=== PATIENT | female | born 1975 | race Two or more races ===

== ENCOUNTER → 2024-08-17 | Outpatient (CLI) | payer MEDICAID, SELFPAY ==
--- NOTE | 2024-08-17 11:15 | XR_ITS ---
Examination: Screening digital mammography, bilateral Computer aided detection 3-D breast Tomosynthesis, bilateral Date and time of exam: August 17, 2024 11:05 AM Compared to mammograms dating to February 05, 2018 Indication: Screening Technique: Nonmagnified MLO, CC views of the breasts to been obtained, reconstructed from 3-D Tomosynthesis images. R2 computer aided detection program utilized for evaluation of suspicious masses and/or abnormal calcifications. 3-D Tomosynthesis images obtained. Findings: The breasts are diffusely dense, which may obscure small masses Grouped microcalcifications upper outer right breast posterior depth 12 mm round mass lobular margins upper outer right breast posterior depth 14 mm round mass lobular margins upper outer left breast Impression: BI-RADS Category 0: Incomplete: Need additional imaging evaluation Grouped microcalcifications upper outer right breast posterior depth, recommend magnification spot compression views 12 mm round mass upper outer right breast, 14 mm round mass upper outer left breast, recommend follow-up spot tomographic views of these nodules as well as bilateral breast sonography to complete the workup
== END | disposition home or self-care (01) ==
LOC: CDIM 10:53
PROVIDERS: Referring Provider Nurse Practitioner Family; Visit Provider Nurse Practitioner Family
DX: Z12.31 Encounter for screening mammogram for malignant neoplasm of breast (principal); R92.0 Mammographic microcalcification found on diagnostic imaging of breast; N63.21 Unspecified lump in the left breast, upper outer quadrant; N63.11 Unspecified lump in the right breast, upper outer quadrant
CPT/HCPCS: 77063; 77067

== ENCOUNTER 2024-11-11 09:00 | Outpatient (RCR) | payer MEDICAID, SELFPAY ==
--- NOTE | 2024-11-10 08:45 | XR_ITS ---
Examination: Nuclear medicine thyroid uptake and scan Exam date and time: November 10, 2024 1611 hours INDICATIONS: Diagnosis nontoxic multinodular goiter diagnosed 5 months ago TECHNIQUE AND FINDINGS: Oral administration [id number] uCi [id number] 6 there are 24 hour uptake values recorded as well as anterior oblique scans 6 hour uptake 6% normal range 6-24% 24 hour uptake 13.5% normal range 10-36% Normal-appearing thyroid scans IMPRESSION: Normal study
== END 2024-11-16 23:59 | disposition home or self-care (01) ==
LOC: SNUC 09:00
PROVIDERS: PCP Nurse Practitioner Family; Referring Provider Nurse Practitioner Family; Visit Provider Nurse Practitioner Family
DX: E04.2 Nontoxic multinodular goiter (principal)
CPT/HCPCS: 78013; A9516

== ENCOUNTER → 2024-11-17 | Outpatient (CLI) | payer MEDICAID, SELFPAY ==
--- NOTE | 2024-11-17 10:00 | XR_ITS ---
Examination: Breast ultrasound complete, bilateral Date and time of exam: November 17, 2024 administered 0959 hrs. Indications: Mammogram August 17, 2024 12 mm round mass lobular margins upper outer quadrant right breast 14 mm round mass lobular margins upper outer quadrant left breast Technique: Real-time grayscale ultrasonographic imaging bilateral breasts, including all 4 quadrants as well as nipple retroareolar and axillary regions. Findings: Sonographic images right breast 2:00 cyst 11 x 9 mm 9:00 cyst 13 x 15 mm No solid nodules Sonographic images left breast 2:00 cyst 19 x 8 mm Retroareolar cyst 7 x 7 mm No solid nodules Multiple smaller cysts Impression: BI-RADS Category 2: Benign findings
--- NOTE | 2024-11-17 11:00 | XR_ITS ---
Examination: Diagnostic digital mammography, bilateral Computer aided detection 3-D breast Tomosynthesis, bilateral Date and time of exam: 07/17/2025, 10:34 AM Comparisons: April 2018 through April 2022. Correlation with today's ultrasound exam. Indications:Further evaluation of right breast calcifications and bilateral breast masses seen on recent screening exam. Technique: Nonmagnified MLO, CC views of the breasts to been obtained, reconstructed from 3-D Tomosynthesis images. R2 computer aided detection program utilized for evaluation of suspicious masses and/or abnormal calcifications. 3-D Tomosynthesis images obtained. Findings: The breasts are heterogeneously dense, which may obscure small masses. 1.5 cm oval circumscribed mass right lower outer quadrant. Finding corresponds to a benign-appearing cyst seen on today's ultrasound Scattered punctate benign-appearing calcifications right breast. 1.4 cm circumscribed mass left lower outer quadrant. Finding corresponds with a benign cyst seen on ultrasound exam. Otherwise, no evidence of abnormal masses or suspicious calcifications. Impression: Benign calcifications and cysts as described. BI-RADS category 2: Benign findings Recommend 1 year follow-up mammogram
== END | disposition home or self-care (01) ==
LOC: CDIM 09:42
PROVIDERS: PCP Nurse Practitioner Family; Referring Provider Nurse Practitioner Family; Visit Provider Nurse Practitioner Family
DX: R92.1 Mammographic calcification found on diagnostic imaging of breast (principal); N60.01 Solitary cyst of right breast; N60.02 Solitary cyst of left breast
CPT/HCPCS: 76641; 77062; 77066; G0279